=== PATIENT | male | born 1960 | race Caucasian/White ===

== ENCOUNTER 2018-04-06 08:09 | Inpatient (IN) | payer MEDICAID ==
[~2018-04-06] VITALS: Ht 170.2 cm; Wt 91.2 kg
[~2018-04-06 08:09] MED LIST: ASPI81CH43 PO; ATOR20TA50 PO; CLOP75TA28 PO; ENA10T PO; HCTZ25T PO; MET25T PO
[2018-04-06] MEDS ORDERED: SODIUM CHLORIDE 0.9% 1,000 ML IV ONE ×2 (08:51)
[2018-04-06] MEDS ORDERED: ONDANSETRON HCL 4 MG/2 ML VIAL IV ONE (09:00)
[2018-04-06 09:38] LABS: Basophils # (auto) 0.1 uL; Eosinophils # (auto) 0.3 uL; Eosinophils % (auto) 2.4 % (0.0-7.0); Hematocrit 42.7 % (41.0-53.0); Hemoglobin 14.2 g/dL (13.5-17.5); Lymphocytes # (auto) 1.7 uL; Lymphocytes % (auto) 16.4 % (10.0-50.0); Mean Corpuscular Hemoglobin 30.2 pg (28.0-32.0); Mean Corpuscular Hgb Conc. 33.4 g/dL (32.0-36.0); Mean Corpuscular Volume 90.5 fL (80.0-100.0); Monocytes # (auto) 0.9 uL; Monocytes % (auto) 8.8 % (0.0-12.0); Neutrophils # (auto) 7.5 uL; Neutrophils % (auto) 71.4 % (37.0-80.0); Platelet Count (auto) 276 10^3/uL (140-450); Red Blood Cells 4.71 10^6/uL (4.5-5.90); Red Cell Distribution Width 13.8 % (11.8-14.3); White Blood Cell 10.5 10^3/uL (4.4-10.8)
[2018-04-06 09:51] LABS: INR 0.93 (0.9-1.15); Partial Thromboplastin Time 28.9 sec (23.78-33.04)
[2018-04-06 10:00] LABS: Albumin 3.1 g/dL (3.4-5.0); BUN/Creatinine Ratio 13.8; Calcium 8.6 mg/dL (8.5-10.1); Potassium 3.8 mmol/L (3.5-5.1)
[2018-04-06 10:04] LABS: Bilirubin, Total 0.1 mg/dL (0.2-1.0); Total Protein 6.9 g/dL (6.4-8.2)
[2018-04-06] MEDS ORDERED: IOHEXOL 300 MG/ML 100ML BOTTLE IJ ONE (10:18)
[2018-04-06] MEDS ORDERED: PANTOPRAZOLE 40 MG/10 ML VIAL IV ONE (10:45)
[2018-04-06] MEDS ORDERED: cefTRIAXone 1GM/10ml IVPUSH 10 ML IV ONE (11:30)
[2018-04-06] MEDS ORDERED: AZITHROMYCIN 500MG/ 250ML 250 ML IV ONE (11:30)
[2018-04-06] MEDS ORDERED: LABETALOL HCL 5 MG/ML ML 20ML VIAL IV ONE ×2 (11:44→11:45)
[2018-04-06] MEDS ORDERED: ALBUTEROL SULF 2.5 MG/0.5ML(0.5%) NEB SOLN NEB PRN (11:45)
[2018-04-06] MEDS ORDERED: ACETAMINOPHEN 500 MG TAB PO PRN (11:45)
[2018-04-06] MEDS ORDERED: DEXTROSE (50%) 50ML SYRG IV PRN (11:45)
[2018-04-06] MEDS ORDERED: PROMETHAZINE HCL 25 MG/ML 1ML IV PRN (11:45)
[2018-04-06] MEDS ORDERED: LACTULOSE 20Gm/30ML SOLN PO PRN (11:45)
[2018-04-06] MEDS ORDERED: NITROGLYCERIN 0.4 MG SL TAB SL PRN (11:45)
[2018-04-06] MEDS ORDERED: TEMAZEPAM 15 MG CAP PO PRN (11:45)
[2018-04-06] MEDS ORDERED: HYDROcodone-ACET 5/325MG TAB PO PRN (11:45)
[2018-04-06] MEDS ORDERED: MORPHINE SULFATE 8mg/ml INJ SDV IV PRN ×2 (11:45)
[2018-04-06] MEDS ORDERED: LORazepam 0.5 MG TAB PO PRN (11:45)
[2018-04-06] MEDS: ALBUTEROL SULF 2.5 MG/0.5ML(0.5%) NEB SOLN NEB SCH ×2 (12:00→18:38)
[2018-04-06] MEDS ORDERED: PROMETHAZINE HCL 25 MG/ML 1ML IV ONE (12:00)
[2018-04-06] MEDS: ACCU-CHEK COMFORT CURVE STRIP VI SCH ×2 (12:10→18:25)
[2018-04-06] MEDS ORDERED: METOPROLOL TARTRATE 25 MG TAB PO ONE (12:15)
[2018-04-06] MEDS ORDERED: ENALAPRIL MALEATE 10 MG TAB PO ONE (12:15)
[2018-04-06 12:24] LABS: Hematocrit 41.4 % (41.0-53.0); Hemoglobin 13.9 g/dL (13.5-17.5)
[2018-04-06] MEDS: FUROSEMIDE 40 MG/4 ML VIAL IV SCH (13:09)
[2018-04-06] MEDS: NITROGLYCERIN 0.2MG/HR TOPICAL PATCH TD SCH (13:10)
[2018-04-06] MEDS: SODIUM CHLOR 0.9% PF (SALINE LOCK) 10ML VIAL/SYR IV SCH ×2 (13:10→21:56)
[2018-04-06 14:30] LABS: Urine Bacteria NONE SEEN /hpf (None Seen); Urine Blood Negative /uL (Negative); Urine Specific Gravity 1.032 (1.001-1.035); Urine WBC <1 /hpf (0 - 3)
[2018-04-06 14:51] VITALS: BP 120/91
[2018-04-06 15:53] LABS: Alcohol, Urine < 3.0 mg/dL (0-5); Amphetamine Screen, Urine POSITIVE (NEGATIVE); Barbiturate Scree,Urine NEGATIVE (NEGATIVE); Benzodiazephine Screen, Urine NEGATIVE (NEGATIVE); Cannabinoid Screen, Urine NEGATIVE (NEGATIVE); Cocaine Screen, Urine NEGATIVE (NEGATIVE); Opiate Scree,Urine NEGATIVE (NEGATIVE); Phencyclidine Screen, Urine NEGATIVE (NEGATIVE)
[2018-04-06 18:06] LABS: Hematocrit 39.4 % (41.0-53.0); Hemoglobin 13.1 g/dL (13.5-17.5)
[2018-04-06] MEDS: METOPROLOL TARTRATE 25 MG TAB PO SCH (21:57)
[2018-04-06] MEDS ORDERED: ATORVASTATIN 20 MG TAB PO SCH (22:00)
[2018-04-07] MEDS: ALBUTEROL SULF 2.5 MG/0.5ML(0.5%) NEB SOLN NEB SCH ×3 (00:07→11:50)
[2018-04-07] MEDS: ACCU-CHEK COMFORT CURVE STRIP VI SCH ×2 (00:14→06:00)
[2018-04-07 00:48] LABS: Hematocrit 36.8 % (41.0-53.0); Hemoglobin 12.3 g/dL (13.5-17.5)
[2018-04-07] MEDS: SODIUM CHLOR 0.9% PF (SALINE LOCK) 10ML VIAL/SYR IV SCH (06:00)
[2018-04-07 06:42] LABS: Basophils # (auto) 0.1 uL; Eosinophils # (auto) 0.2 uL; Eosinophils % (auto) 2.1 % (0.0-7.0); Hemoglobin 12.5 g/dL (13.5-17.5); Lymphocytes # (auto) 2.3 uL; Lymphocytes % (auto) 20.7 % (10.0-50.0); Mean Corpuscular Hemoglobin 29.7 pg (28.0-32.0); Mean Corpuscular Hgb Conc. 32.8 g/dL (32.0-36.0); Mean Corpuscular Volume 90.5 fL (80.0-100.0); Monocytes # (auto) 0.8 uL; Monocytes % (auto) 7.4 % (0.0-12.0); Neutrophils # (auto) 7.7 uL; Neutrophils % (auto) 68.8 % (37.0-80.0); Nucleated Red Blood Cells % 0.1 %; Platelet Count (auto) 247 10^3/uL (140-450); Red Cell Distribution Width 13.6 % (11.8-14.3); White Blood Cell 11.2 10^3/uL (4.4-10.8)
[2018-04-07 07:00] VITALS: BP 130/94
[2018-04-07 07:07] LABS: Albumin 2.9 g/dL (3.4-5.0); BUN/Creatinine Ratio 13.7; Bilirubin, Total 0.4 mg/dL (0.2-1.0); Calcium 8.8 mg/dL (8.5-10.1); Total Protein 6.4 g/dL (6.4-8.2)
[2018-04-07] MEDS ORDERED: cefTRIAXone 1GM/10ml IVPUSH 10 ML IV SCH (09:00)
[2018-04-07] MEDS: FUROSEMIDE 40 MG/4 ML VIAL IV SCH (09:34)
[2018-04-07] MEDS: NITROGLYCERIN 0.2MG/HR TOPICAL PATCH TD SCH (09:35)
[2018-04-07] MEDS ORDERED: ENALAPRIL MALEATE 10 MG TAB PO SCH (10:00)
[2018-04-07] MEDS ORDERED: POTASSIUM CHL 20 Meq TABLET PO SCH (10:00)
[2018-04-07] MEDS ORDERED: AZITHROMYCIN 500MG/ 250ML 250 ML IV SCH (10:00)
[2018-04-07] MEDS ORDERED: HCTZ 25 MG TAB PO SCH (10:00)
[2018-04-07] MEDS ORDERED: PANTOPRAZOLE 40 MG TAB PO SCH (10:00)
[2018-04-07] MEDS: METOPROLOL TARTRATE 25 MG TAB PO SCH (10:00)
[2018-04-07] MEDS ORDERED: DEXTROSE (50%) 50ML SYRG IV PRN (10:15)
[2018-04-07] MEDS ORDERED: ACCU-CHEK COMFORT CURVE STRIP VI SCH (11:30)
[2018-04-07] MEDS ORDERED: InsuLIN REG 1unit/0.01ml Soln (100units/ml) SC SCH (11:30)
[2018-04-07 11:35] VITALS: BP 106/77
[2018-04-07 12:00] VITALS: BP 120/79
[2018-04-16] MEDS ORDERED: LEVO750T2 PO (14:37)
[2018-04-16] MEDS ORDERED: SACC250C PO (14:37)
== END 2018-04-07 15:30 | disposition home or self-care (01) | DRG 139 ==
LOC: ER 08:09 → EDBD 08:09 → TELE 08:10 → DOU IN ICU 04-07 06:07
PROVIDERS: ADMIT Internal Medicine; ATTEND Internal Medicine
DX: J18.9 Pneumonia, unspecified organism (principal); I13.0 Hypertensive heart and chronic kidney disease with heart failure and stage 1 through stage 4 chronic kidney disease, or unspecified chronic kidney disease; I50.9 Heart failure, unspecified; R04.2 Hemoptysis; E44.1 Mild protein-calorie malnutrition; K92.2 Gastrointestinal hemorrhage, unspecified; J21.9 Acute bronchiolitis, unspecified; F17.210 Nicotine dependence, cigarettes, uncomplicated; I16.0 Hypertensive urgency; I25.10 Atherosclerotic heart disease of native coronary artery without angina pectoris; I70.90 Unspecified atherosclerosis; N18.2 Chronic kidney disease, stage 2 (mild); R73.03 Prediabetes; Z82.49 Family history of ischemic heart disease and other diseases of the circulatory system; Z68.31 Body mass index [BMI] 31.0-31.9, adult
CPT/HCPCS: 36415; 71045; 71260; 80053; 80061; 80307; 81001; 82550; 82962; 83036; 83605; 83880; 84443; 84484; 85014; 85018; 85025; 85045; 85379; 85610; 85652; 85730; 86141; 86850; 86900; 86901; 87040; 87081; 93005; 93306; 94640; 96361; 96365; 96375; C9113; J2405

== ENCOUNTER 2018-04-11 00:34 | Inpatient (IN) | payer MEDICAID ==
[~2018-04-11] VITALS: Ht 170.2 cm; Wt 112.9 kg
[~2018-04-11 00:34] MED LIST changes: -CLOP75TA28 PO
[2018-04-11] MEDS ORDERED: cloNIDine HCL 0.1 MG TAB ONE (00:52)
[2018-04-11] MEDS ORDERED: cloNIDine HCL 0.1 MG TAB PO ONE (01:00)
[2018-04-11 01:11] LABS: Basophils # (auto) 0.1 uL; Basophils % (auto) 1.5 % (0.0-2.0); Eosinophils # (auto) 0.3 uL; Hematocrit 43.8 % (41.0-53.0); Hemoglobin 14.8 g/dL (13.5-17.5); Lymphocytes # (auto) 2.3 uL; Lymphocytes % (auto) 25.8 % (10.0-50.0); Mean Corpuscular Hemoglobin 30.1 pg (28.0-32.0); Mean Corpuscular Hgb Conc. 33.9 g/dL (32.0-36.0); Mean Corpuscular Volume 88.8 fL (80.0-100.0); Monocytes # (auto) 0.6 uL; Monocytes % (auto) 6.9 % (0.0-12.0); Neutrophils # (auto) 5.7 uL; Neutrophils % (auto) 62.8 % (37.0-80.0); Nucleated Red Blood Cells % 0.1 %; Platelet Count (auto) 303 10^3/uL (140-450); Red Blood Cells 4.93 10^6/uL (4.5-5.90); Red Cell Distribution Width 13.3 % (11.8-14.3); White Blood Cell 9.1 10^3/uL (4.4-10.8)
[2018-04-11 01:29] LABS: Albumin 3.2 g/dL (3.4-5.0); BUN/Creatinine Ratio 21.6; Calcium 8.9 mg/dL (8.5-10.1); Magnesium 2.2 mg/dL (1.6-2.6); Potassium 3.5 mmol/L (3.5-5.1)
[2018-04-11 01:34] LABS: Bilirubin, Total 0.3 mg/dL (0.2-1.0); Total Protein 7.5 g/dL (6.4-8.2)
[2018-04-11 01:53] LABS: INR 0.95 (0.9-1.15); Partial Thromboplastin Time 29.9 sec (23.78-33.04); Prothrombin Time 10.2 sec (9.27-12.13)
[2018-04-11 02:55] LABS: Urine Bacteria NONE SEEN /hpf (None Seen); Urine Blood Negative /uL (Negative); Urine Specific Gravity 1.014 (1.001-1.035); Urine WBC <1 /hpf (0 - 3)
[2018-04-11 03:13] LABS: Alcohol, Urine < 3.0 mg/dL (0-5); Amphetamine Screen, Urine POSITIVE (NEGATIVE); Barbiturate Scree,Urine NEGATIVE (NEGATIVE); Benzodiazephine Screen, Urine NEGATIVE (NEGATIVE); Cannabinoid Screen, Urine NEGATIVE (NEGATIVE); Cocaine Screen, Urine NEGATIVE (NEGATIVE); Opiate Scree,Urine NEGATIVE (NEGATIVE); Phencyclidine Screen, Urine NEGATIVE (NEGATIVE)
[2018-04-11] MEDS ORDERED: TEMAZEPAM 15 MG CAP PO PRN (06:00)
[2018-04-11] MEDS ORDERED: ACETAMINOPHEN 325 MG TAB PO PRN (06:00)
[2018-04-11] MEDS ORDERED: guaiFENesin-DM 100/10mg/5ml SYR PO PRN (06:00)
[2018-04-11] MEDS ORDERED: HYDROcodone-ACET 5/325MG TAB PO PRN (06:00)
[2018-04-11] MEDS ORDERED: ONDANSETRON HCL 4 MG/2 ML VIAL IV PRN (06:00)
[2018-04-11] MEDS ORDERED: cefTRIAXone 1GM/10ml IVPUSH 10 ML IV SCH (09:00)
[2018-04-11] MEDS ORDERED: ENALAPRIL MALEATE 10 MG TAB PO SCH (10:00)
[2018-04-11] MEDS ORDERED: HCTZ 25 MG TAB PO SCH (10:00)
[2018-04-11] MEDS ORDERED: FAMOTIDINE 20 MG TAB PO SCH (10:00)
[2018-04-11] MEDS ORDERED: METOPROLOL TARTRATE 25 MG TAB PO SCH (10:00)
[2018-04-11 16:47] VITALS: BP 124/73
[2018-04-11] MEDS ORDERED: ATORVASTATIN 20 MG TAB PO SCH (22:00)
[2018-04-12] MEDS ORDERED: LIDOCAINE HCL 2 % INJ 2ML MPF NEB ONE (10:30)
[2018-04-12] MEDS ORDERED: MEPERIDINE HCL (25 MG/ML) 1ML VIAL IM ONE (10:30)
[2018-04-16] MEDS ORDERED: SACC250C PO (14:37)
[2018-04-16] MEDS ORDERED: LEVO750T2 PO (14:37)
== END 2018-04-11 19:00 | disposition left against medical advice (07) | DRG 194 ==
LOC: EDUNIT# 00:34 → EDBD 00:34 → ER 00:34 → OVERFLOW 00:35 → EAST 14:10
PROVIDERS: ADMIT Nurse Practitioner; ATTEND Internal Medicine
DX: I11.0 Hypertensive heart disease with heart failure (principal); R04.2 Hemoptysis; F15.10 Other stimulant abuse, uncomplicated; E78.5 Hyperlipidemia, unspecified; R07.89 Other chest pain; I50.43 Acute on chronic combined systolic (congestive) and diastolic (congestive) heart failure; I25.5 Ischemic cardiomyopathy; I25.10 Atherosclerotic heart disease of native coronary artery without angina pectoris; F17.210 Nicotine dependence, cigarettes, uncomplicated; Z79.82 Long term (current) use of aspirin; Z79.899 Other long term (current) drug therapy; Z87.01 Personal history of pneumonia (recurrent); Z82.49 Family history of ischemic heart disease and other diseases of the circulatory system; Z82.3 Family history of stroke
CPT/HCPCS: 36415; 71045; 71250; 80053; 80307; 81001; 83735; 83880; 84484; 85025; 85610; 85730; 87081; 93005; 96374

== ENCOUNTER 2018-04-12 14:04 | Inpatient (IN) | payer MEDICAID ==
[~2018-04-12] VITALS: Ht 170.2 cm; Wt 89.7 kg
[2018-04-12] MEDS ORDERED: AZITHROMYCIN 500MG/ 250ML 250 ML IV ONE (14:30)
[2018-04-12] MEDS ORDERED: cefTRIAXone 1GM/10ml IVPUSH 10 ML IV ONE (14:30)
[2018-04-12 14:52] LABS: Basophils # (auto) 0.1 uL; Basophils % (auto) 0.5 % (0.0-2.0); Eosinophils # (auto) 0.2 uL; Eosinophils % (auto) 1.2 % (0.0-7.0); Hematocrit 45.4 % (41.0-53.0); Hemoglobin 15.1 g/dL (13.5-17.5); Lymphocytes # (auto) 2.4 uL; Mean Corpuscular Hemoglobin 29.2 pg (28.0-32.0); Mean Corpuscular Hgb Conc. 33.2 g/dL (32.0-36.0); Mean Corpuscular Volume 88.1 fL (80.0-100.0); Monocytes # (auto) 0.8 uL; Monocytes % (auto) 5.2 % (0.0-12.0); Neutrophils # (auto) 11.6 uL; Neutrophils % (auto) 77.1 % (37.0-80.0); Platelet Count (auto) 314 10^3/uL (140-450); Red Blood Cells 5.16 10^6/uL (4.5-5.90); Red Cell Distribution Width 13.4 % (11.8-14.3); White Blood Cell 15.1 10^3/uL (4.4-10.8)
[2018-04-12 15:01] LABS: Albumin 3.6 g/dL (3.4-5.0); BUN/Creatinine Ratio 18.2; Bilirubin, Total 0.5 mg/dL (0.2-1.0); Calcium 9.3 mg/dL (8.5-10.1); Magnesium 2.4 mg/dL (1.6-2.6); Potassium 3.9 mmol/L (3.5-5.1); Total Protein 7.9 g/dL (6.4-8.2)
[2018-04-12 15:02] LABS: Prothrombin Time 10.7 sec (9.27-12.13)
[2018-04-12] MEDS ORDERED: ALBUTEROL SULF 2.5 MG/0.5ML(0.5%) NEB SOLN NEB PRN (15:45)
[2018-04-12] MEDS ORDERED: NITROGLYCERIN 0.4 MG SL TAB SL PRN (15:45)
[2018-04-12] MEDS ORDERED: MORPHINE SULFATE 8mg/ml INJ SDV IV PRN (15:45)
[2018-04-12] MEDS ORDERED: LACTULOSE 20Gm/30ML SOLN PO PRN (15:45)
[2018-04-12] MEDS ORDERED: MORPHINE SULF INJ 2 MG/ML SYRINGE 1ML IV PRN (16:00)
[2018-04-12] MEDS ORDERED: FLUCONAZOLE 200MG/100ML 100 ML IV ONE (16:15)
[2018-04-12 16:21] LABS: Folate (Folic Acid) 23.32 ng/mL (5.38-24)
[2018-04-12] MEDS: SODIUM CHLORIDE 0.9% 1,000 ML IV SCH (17:02)
[2018-04-12 18:00] VITALS: BP_SYST 155; BP_SYST 158; BP_DIAS 102; BP_DIAS 104
[2018-04-12] MEDS: ALBUTEROL SULF 2.5 MG/0.5ML(0.5%) NEB SOLN NEB SCH (19:48)
[2018-04-12] MEDS ORDERED: LORazepam 2MG/ML-1ML VIAL IV PRN (20:45)
[2018-04-12] MEDS: FAMOTIDINE 20 MG TAB PO SCH (21:58)
[2018-04-12 22:00] VITALS: BP 148/97
[2018-04-13 03:42] VITALS: BP 148/97
[2018-04-13 05:00] VITALS: BP 155/113
[2018-04-13 05:24] LABS: Basophils # (auto) 0.1 uL; Eosinophils # (auto) 0.3 uL; Eosinophils % (auto) 3.2 % (0.0-7.0); Hematocrit 41.8 % (41.0-53.0); Lymphocytes # (auto) 2.6 uL; Lymphocytes % (auto) 33.5 % (10.0-50.0); Mean Corpuscular Hgb Conc. 33.5 g/dL (32.0-36.0); Mean Corpuscular Volume 89.5 fL (80.0-100.0); Monocytes # (auto) 0.7 uL; Monocytes % (auto) 8.5 % (0.0-12.0); Neutrophils # (auto) 4.2 uL; Neutrophils % (auto) 53.8 % (37.0-80.0); Platelet Count (auto) 261 10^3/uL (140-450); Red Blood Cells 4.68 10^6/uL (4.5-5.90); Red Cell Distribution Width 13.2 % (11.8-14.3); White Blood Cell 7.8 10^3/uL (4.4-10.8)
[2018-04-13] MEDS ORDERED: METOPROLOL SUCCINATE XL 50 MG TAB PO ONE (06:18)
[2018-04-13 06:39] LABS: Alcohol, Urine < 3.0 mg/dL (0-5); Amphetamine Screen, Urine NEGATIVE (NEGATIVE); Barbiturate Scree,Urine NEGATIVE (NEGATIVE); Benzodiazephine Screen, Urine NEGATIVE (NEGATIVE); Cannabinoid Screen, Urine NEGATIVE (NEGATIVE); Cocaine Screen, Urine NEGATIVE (NEGATIVE); Opiate Scree,Urine NEGATIVE (NEGATIVE); Phencyclidine Screen, Urine NEGATIVE (NEGATIVE)
[2018-04-13 06:50] LABS: Urine Bacteria NONE SEEN /hpf (None Seen); Urine Blood Negative /uL (Negative); Urine Specific Gravity 1.015 (1.001-1.035); Urine WBC 1 /hpf (0 - 3)
[2018-04-13] MEDS: SODIUM CHLORIDE 0.9% 1,000 ML IV SCH ×3 (07:00→14:03)
[2018-04-13] MEDS: ALBUTEROL SULF 2.5 MG/0.5ML(0.5%) NEB SOLN NEB SCH ×4 (07:11→18:50)
[2018-04-13] MEDS: METOPROLOL SUCCINATE XL 50 MG TAB PO SCH (07:46)
[2018-04-13] MEDS: ENALAPRIL MALEATE 10 MG TAB PO SCH (07:46)
[2018-04-13 07:50] VITALS: BP 168/123
[2018-04-13] MEDS: FAMOTIDINE 20 MG TAB PO SCH ×2 (09:05→21:51)
[2018-04-13] MEDS: cefTRIAXone 1GM/10ml IVPUSH 10 ML IV SCH (09:05)
[2018-04-13] MEDS: AZITHROMYCIN 500MG/ 250ML 250 ML IV SCH (09:05)
[2018-04-13] MEDS: FLUCONAZOLE 200MG/100ML 100 ML IV SCH (11:48)
[2018-04-13 13:00] VITALS: BP 122/78
[2018-04-13] MEDS ORDERED: HCTZ 25 MG TAB PO ONE (13:30)
[2018-04-13] MEDS ORDERED: hydrALAZINE HCL 20 MG/ML VL IV PRN (13:30)
[2018-04-13] MEDS ORDERED: ASPirin-EC 81 mg tab PO ONE (15:45)
[2018-04-13 16:29] VITALS: BP 148/97
[2018-04-13] MEDS: ATORVASTATIN 20 MG TAB PO SCH (21:51)
[2018-04-13 22:48] VITALS: BP 155/86
[2018-04-14] MEDS: ALBUTEROL SULF 2.5 MG/0.5ML(0.5%) NEB SOLN NEB SCH ×4 (00:03→19:36)
[2018-04-14 05:54] VITALS: BP 134/96
[2018-04-14 06:50] LABS: Basophils # (auto) 0.1 uL; Basophils % (auto) 0.7 % (0.0-2.0); Eosinophils # (auto) 0.3 uL; Eosinophils % (auto) 2.8 % (0.0-7.0); Hematocrit 43.9 % (41.0-53.0); Hemoglobin 14.9 g/dL (13.5-17.5); Lymphocytes # (auto) 3.1 uL; Lymphocytes % (auto) 31.6 % (10.0-50.0); Mean Corpuscular Hemoglobin 30.4 pg (28.0-32.0); Mean Corpuscular Hgb Conc. 33.8 g/dL (32.0-36.0); Mean Corpuscular Volume 89.8 fL (80.0-100.0); Monocytes # (auto) 0.9 uL; Monocytes % (auto) 9.5 % (0.0-12.0); Neutrophils # (auto) 5.4 uL; Neutrophils % (auto) 55.4 % (37.0-80.0); Platelet Count (auto) 276 10^3/uL (140-450); Red Blood Cells 4.89 10^6/uL (4.5-5.90); Red Cell Distribution Width 13.5 % (11.8-14.3); White Blood Cell 9.7 10^3/uL (4.4-10.8)
[2018-04-14 06:51] LABS: BUN/Creatinine Ratio 18.9; Calcium 9.4 mg/dL (8.5-10.1); Potassium 4.1 mmol/L (3.5-5.1)
[2018-04-14 08:00] VITALS: BP 122/73
[2018-04-14 09:00] VITALS: BP 144/113
[2018-04-14] MEDS ORDERED: METOPROLOL SUCCINATE XL 50 MG TAB PO SCH (10:00)
[2018-04-14] MEDS: ASPirin-EC 81 mg tab PO SCH (10:56)
[2018-04-14] MEDS: SODIUM CHLORIDE 0.9% 1,000 ML IV SCH (10:56)
[2018-04-14] MEDS: AZITHROMYCIN 500MG/ 250ML 250 ML IV SCH (10:56)
[2018-04-14] MEDS: cefTRIAXone 1GM/10ml IVPUSH 10 ML IV SCH (10:56)
[2018-04-14] MEDS: FAMOTIDINE 20 MG TAB PO SCH ×2 (10:57→22:00)
[2018-04-14] MEDS: HCTZ 25 MG TAB PO SCH (10:58)
[2018-04-14] MEDS: ENALAPRIL MALEATE 10 MG TAB PO SCH (10:59)
[2018-04-14] MEDS: METOPROLOL SUCCINATE XL 50 MG TAB PO SCH (10:59)
[2018-04-14 13:00] VITALS: BP 148/93
[2018-04-14] MEDS: FLUCONAZOLE 200MG/100ML 100 ML IV SCH (14:33)
[2018-04-14 17:00] VITALS: BP 152/101
[2018-04-14 22:00] VITALS: BP 110/72
[2018-04-14] MEDS: ATORVASTATIN 20 MG TAB PO SCH (22:00)
[2018-04-14] MEDS ORDERED: KETOROLAC TROMETH 30 MG/ML 1ML VIAL IV ONE (22:45)
[2018-04-15] VITALS (7 sets, daily range): BP systolic 136–148; BP diastolic 85–113
[2018-04-15] MEDS: SODIUM CHLORIDE 0.9% 1,000 ML IV SCH (05:30)
[2018-04-15] MEDS: ALBUTEROL SULF 2.5 MG/0.5ML(0.5%) NEB SOLN NEB SCH ×4 (07:58→19:59)
[2018-04-15] MEDS: cefTRIAXone 1GM/10ml IVPUSH 10 ML IV SCH (11:19)
[2018-04-15] MEDS: METOPROLOL SUCCINATE XL 50 MG TAB PO SCH (11:20)
[2018-04-15] MEDS: ASPirin-EC 81 mg tab PO SCH (11:20)
[2018-04-15] MEDS: HCTZ 25 MG TAB PO SCH (11:20)
[2018-04-15] MEDS: FAMOTIDINE 20 MG TAB PO SCH ×2 (11:20→22:49)
[2018-04-15] MEDS: AZITHROMYCIN 500MG/ 250ML 250 ML IV SCH (11:20)
[2018-04-15] MEDS: ENALAPRIL MALEATE 10 MG TAB PO SCH (11:21)
[2018-04-15] MEDS: FLUCONAZOLE 200MG/100ML 100 ML IV SCH (12:00)
[2018-04-15] MEDS: ATORVASTATIN 20 MG TAB PO SCH (22:49)
[2018-04-16] MEDS: ALBUTEROL SULF 2.5 MG/0.5ML(0.5%) NEB SOLN NEB SCH ×3 (00:37→11:58)
[2018-04-16] MEDS: SODIUM CHLORIDE 0.9% 1,000 ML IV SCH (01:30)
[2018-04-16 04:40] VITALS: BP 150/92
[2018-04-16 06:57] LABS: Potassium 4.4 mmol/L (3.5-5.1)
[2018-04-16 07:04] LABS: BUN/Creatinine Ratio 22.5; Calcium 9.5 mg/dL (8.5-10.1)
[2018-04-16 08:40] VITALS: BP 165/116
[2018-04-16] MEDS: ENALAPRIL MALEATE 10 MG TAB PO SCH (10:40)
[2018-04-16] MEDS: FAMOTIDINE 20 MG TAB PO SCH (10:41)
[2018-04-16] MEDS: ASPirin-EC 81 mg tab PO SCH (10:41)
[2018-04-16] MEDS: HCTZ 25 MG TAB PO SCH (10:41)
[2018-04-16] MEDS: AZITHROMYCIN 500MG/ 250ML 250 ML IV SCH (10:42)
[2018-04-16] MEDS: cefTRIAXone 1GM/10ml IVPUSH 10 ML IV SCH (10:42)
[2018-04-16] MEDS: METOPROLOL SUCCINATE XL 50 MG TAB PO SCH (10:42)
[2018-04-16] MEDS: FLUCONAZOLE 200MG/100ML 100 ML IV SCH (12:53)
[2018-04-16 13:04] VITALS: BP 128/88
[2018-04-16] MEDS ORDERED: SACC250C PO (14:37)
[2018-04-16] MEDS ORDERED: LEVO750T2 PO (14:37)
[2018-04-16 15:38] VITALS: BP 128/88
== END 2018-04-16 17:20 | disposition home or self-care (01) | DRG 720 ==
LOC: ER 14:04 → TELE 14:05 → TELE-WESTW 18:11
PROVIDERS: ADMIT Internal Medicine; ATTEND Internal Medicine
DX: A41.9 Sepsis, unspecified organism (principal); N17.0 Acute kidney failure with tubular necrosis; I63.9 Cerebral infarction, unspecified; I11.0 Hypertensive heart disease with heart failure; J18.9 Pneumonia, unspecified organism; I50.9 Heart failure, unspecified; I67.2 Cerebral atherosclerosis; I07.1 Rheumatic tricuspid insufficiency; I25.10 Atherosclerotic heart disease of native coronary artery without angina pectoris; I25.5 Ischemic cardiomyopathy; E78.5 Hyperlipidemia, unspecified; F15.10 Other stimulant abuse, uncomplicated; N20.0 Calculus of kidney; H55.00 Unspecified nystagmus; F17.210 Nicotine dependence, cigarettes, uncomplicated; Z79.82 Long term (current) use of aspirin; Z79.899 Other long term (current) drug therapy; Z82.3 Family history of stroke; Z82.49 Family history of ischemic heart disease and other diseases of the circulatory system; Z71.51 Drug abuse counseling and surveillance of drug abuser; Z86.73 Personal history of transient ischemic attack (TIA), and cerebral infarction without residual deficits
CPT/HCPCS: 36415; 70450; 70551; 74176; 80048; 80053; 80307; 81001; 82150; 82550; 82607; 82746; 83605; 83690; 83735; 83880; 84443; 84484; 85025; 85610; 87040; 87070; 87081; 87205; 93005; 93886; 94640; 94761; 96365; 96367; 96375; J1450; J1885

== ENCOUNTER → 2018-12-31 | Outpatient (CLI) | payer MEDICAID ==
[~2018-12-31] VITALS: Ht 170.2 cm; Wt 111.6 kg
[~2018-12-31] MED LIST changes: +ADENOSINE 90 MG/30 ML INJ IV ONE; +ADENOSINE 94 MG in GIVE UN-DILUTED 0 ML IV ONE; +LEVO750T2 PO; +SACC250C PO
== END | disposition home or self-care (01) ==
LOC: Rad HDHVI 13:41
PROVIDERS: ATTEND Internal Medicine Cardiovascular Disease
DX: I20.0 Unstable angina (principal); I10 Essential (primary) hypertension; I11.9 Hypertensive heart disease without heart failure
CPT/HCPCS: 78452; 93005; 93306; 96374; 96375; A9500; J0153

== ENCOUNTER 2019-01-11 11:25 | Emergency (ER) | payer MEDICAID ==
[~2019-01-11] VITALS: Ht 170.2 cm; Wt 108.9 kg
[~2019-01-11 11:25] MED LIST changes: -ADENOSINE 90 MG/30 ML INJ IV ONE; -ADENOSINE 94 MG in GIVE UN-DILUTED 0 ML IV ONE
[2019-01-11] MEDS ORDERED: cloNIDine HCL 0.1 MG TAB PO ONE (12:00)
[2019-01-11 13:26] VITALS: BP 148/81
== END 2019-01-11 13:42 | disposition home or self-care (01) ==
LOC: EDBD 11:25 → ER 11:27
DX: I16.0 Hypertensive urgency (principal); I11.0 Hypertensive heart disease with heart failure; I50.9 Heart failure, unspecified; R51 Headache; E78.5 Hyperlipidemia, unspecified; F15.10 Other stimulant abuse, uncomplicated; I25.10 Atherosclerotic heart disease of native coronary artery without angina pectoris; Z87.891 Personal history of nicotine dependence; Z79.2 Long term (current) use of antibiotics; Z79.82 Long term (current) use of aspirin; Z79.899 Other long term (current) drug therapy
CPT/HCPCS: 70450

== ENCOUNTER 2019-06-07 10:31 | Emergency (ER) | payer MEDICAID ==
[~2019-06-07] VITALS: Ht 180.3 cm; Wt 124.7 kg
[~2019-06-07 10:31] MED LIST changes: -ENA10T PO; +ENAL10TA PO
[2019-06-07] MEDS ORDERED: cloNIDine HCL 0.1 MG TAB PO ONE (10:45)
[2019-06-07] MEDS ORDERED: cloNIDine HCL 0.1 MG TAB ONE (10:51)
[2019-06-07 11:47] LABS: Basophils # (auto) 0.1 uL; Basophils % (auto) 0.9 % (0.0-2.0); Eosinophils # (auto) 0.3 uL; Eosinophils % (auto) 3.2 % (0.0-7.0); Hematocrit 44.8 % (41.0-53.0); Hemoglobin 14.9 g/dL (13.5-17.5); Lymphocytes # (auto) 1.8 uL; Lymphocytes % (auto) 22.3 % (10.0-50.0); Mean Corpuscular Hemoglobin 30.6 pg (28.0-32.0); Mean Corpuscular Hgb Conc. 33.3 g/dL (32.0-36.0); Monocytes # (auto) 0.7 uL; Monocytes % (auto) 8.2 % (0.0-12.0); Neutrophils # (auto) 5.3 uL; Neutrophils % (auto) 65.4 % (37.0-80.0); Nucleated Red Blood Cells % 0.1 %; Platelet Count (auto) 239 10^3/uL (140-450); Red Blood Cells 4.87 10^6/uL (4.5-5.90); Red Cell Distribution Width 13.2 % (11.8-14.3); White Blood Cell 8.1 10^3/uL (4.4-10.8)
[2019-06-07 12:01] LABS: Albumin 3.4 g/dL (3.4-5.0); Anion Gap 6 (5-15); Aspartate Aminotransferase 16 U/L (15-37); BUN/Creatinine Ratio 9.8; Blood Urea Nitrogen 11 mg/dL (7-18); Calcium 8.9 mg/dL (8.5-10.1); Carbon Dioxide 26 mmol/L (21-32); Chloride 112 mmol/L (98-107); GFR African American 87 mL/min; GFR Non-African American 72 mL/min; Glucose 110 mg/dL (74-106); Magnesium 2.4 mg/dL (1.6-2.6); Potassium 3.5 mmol/L (3.5-5.1); Sodium 144 mmol/L (136-145)
[2019-06-07 12:06] LABS: Alanine Aminotransferase 28 U/L (16-61); Alkaline Phosphatase 98 U/L (45-117); Bilirubin, Total 0.4 mg/dL (0.2-1.0); Total Protein 7.2 g/dL (6.4-8.2)
[2019-06-07 13:49] VITALS: BP 127/86
== END 2019-06-07 14:31 | disposition home or self-care (01) ==
LOC: EDBD 10:31 → ER 10:36
DX: I11.0 Hypertensive heart disease with heart failure (principal); I50.9 Heart failure, unspecified; I25.10 Atherosclerotic heart disease of native coronary artery without angina pectoris; E78.5 Hyperlipidemia, unspecified; F17.210 Nicotine dependence, cigarettes, uncomplicated; Z79.82 Long term (current) use of aspirin; Z79.899 Other long term (current) drug therapy; Z86.73 Personal history of transient ischemic attack (TIA), and cerebral infarction without residual deficits
CPT/HCPCS: 36415; 70450; 71045; 80053; 83735; 84484; 85025; 93005; 94761

== ENCOUNTER 2019-07-23 13:51 | Emergency (ER) | payer MEDICAID ==
[~2019-07-23] VITALS: Ht 170.2 cm; Wt 113.4 kg
[2019-07-23 15:11] LABS: Albumin 3.6 g/dL (3.4-5.0); Anion Gap 9 (5-15); Blood Urea Nitrogen 10 mg/dL (7-18); Calcium 9.4 mg/dL (8.5-10.1); Carbon Dioxide 25 mmol/L (21-32); Chloride 106 mmol/L (98-107); Glucose 99 mg/dL (74-106); Potassium 3.5 mmol/L (3.5-5.1); Sodium 140 mmol/L (136-145)
[2019-07-23 15:14] LABS: Alanine Aminotransferase 27 U/L (16-61); BUN/Creatinine Ratio 9.4; GFR African American 92 mL/min; GFR Non-African American 76 mL/min
[2019-07-23 15:24] LABS: Alkaline Phosphatase 94 U/L (45-117); Aspartate Aminotransferase 20 U/L (15-37); Bilirubin, Total 0.5 mg/dL (0.2-1.0); Total Protein 7.5 g/dL (6.4-8.2)
[2019-07-23 17:13] LABS: Basophils # (auto) 0.1 uL; Basophils % (auto) 0.6 % (0.0-2.0); Eosinophils # (auto) 0.2 uL; Eosinophils % (auto) 1.6 % (0.0-7.0); Hematocrit 46.5 % (41.0-53.0); Hemoglobin 15.5 g/dL (13.5-17.5); Lymphocytes # (auto) 2.4 uL; Lymphocytes % (auto) 22.7 % (10.0-50.0); Mean Corpuscular Hemoglobin 30.4 pg (28.0-32.0); Mean Corpuscular Hgb Conc. 33.3 g/dL (32.0-36.0); Mean Corpuscular Volume 91.1 fL (80.0-100.0); Monocytes # (auto) 0.7 uL; Neutrophils # (auto) 7.1 uL; Neutrophils % (auto) 68.1 % (37.0-80.0); Nucleated Red Blood Cells % 0.1 %; Platelet Count (auto) 247 10^3/uL (140-450); Red Cell Distribution Width 13.4 % (11.8-14.3); White Blood Cell 10.5 10^3/uL (4.4-10.8)
[2019-07-23 18:56] VITALS: BP 172/96
== END 2019-07-23 19:05 | disposition home or self-care (01) ==
LOC: ER 13:51
DX: I11.0 Hypertensive heart disease with heart failure (principal); I50.9 Heart failure, unspecified; I25.10 Atherosclerotic heart disease of native coronary artery without angina pectoris; E78.5 Hyperlipidemia, unspecified; F17.210 Nicotine dependence, cigarettes, uncomplicated; R07.9 Chest pain, unspecified; Z79.82 Long term (current) use of aspirin; Z79.899 Other long term (current) drug therapy; Z86.73 Personal history of transient ischemic attack (TIA), and cerebral infarction without residual deficits
CPT/HCPCS: 36415; 70450; 71046; 80053; 84484; 85025; 93005